=== PATIENT | male | born 1965 | race Caucasian/White ===

== ENCOUNTER → 2017-02-03 | Outpatient (CLI) | payer BC, OTHER ==
[2017-02-03 15:28] LABS: LDL CHOLESTEROL,CALCULATED 143.6 mg/dL
== END ==
LOC: LAB 11:01
PROVIDERS: ATTEND Physician Assistant Medical
DX: Z01.812 Encounter for preprocedural laboratory examination (principal); S83.207D Unspecified tear of unspecified meniscus, current injury, left knee, subsequent encounter
CPT/HCPCS: 80061